=== PATIENT | female | born 1990 | race African-American/Black ===

== ENCOUNTER 2022-02-16 18:20 | Emergency (ER) | payer OTHER, SELFPAY ==
--- NOTE | ~2022-02-16 | US_ITS ---
EXAMINATION: US pelvic complete w TV DATE: 02/16/2022 21:00 INDICATION: AUB TECHNIQUE: Multiple transabdominal and endovaginal sonographic images of the pelvis were obtained. COMPARISON: None. FINDINGS: Uterus: 10.5 x 5.5 x 6.5 cm. Endometrial complex measures 5.4 mm. Right Ovary: 3.7 x 1.9 x 2.2 cm. Vascular flow is present. Left Ovary: 3.2 x 1.7 x 1.6 cm. Vascular flow is present. There is no free fluid in the pelvis. IMPRESSION: Normal pelvic sonogram findings. Reviewed, dictated and finalized at location K. [employer]
[2022-02-16 18:30] VITALS: BP 140/89; PULSE 80; RESP 16; TEMP 36.7; O2SAT 100
[2022-02-16 18:50] LABS: Basophils Percent Auto 0.3 % (0.2-1.2); Eosinophils Absolute Auto 0.1 K/mm3 (0-0.3); Hematocrit 38.2 % (37.0-47.0); Hemoglobin 12.4 g/dL (12.0-15.0); Immature Granulocyte Absolute 0.01 K/mm3 (0.00-0.031); Immature Granulocyte Percent A 0.2 % (0-0.5); Lymphocytes Absolute Auto 3.64 K/mm3 (0.9-3.2); Lymphocytes Percent Auto 59.2 % (18.3-44.2); Mean Corpuscular HGB Conc 32.5 g/dl (32-36); Mean Corpuscular Hemoglobin 29.1 pg (26-34); Mean Corpuscular Volume 89.7 fl (80-100); Mean Platelet Volume 9.3 fl (7.4-10.4); Monocytes Absolute Auto 0.3 K/mm3 (0.1-0.6); Monocytes Percent Auto 4.7 % (2.6-8.5); Neutrophils Absolute Auto 2.1 K/mm3 (1.3-6.7); Neutrophils Percent Auto 34.6 % (45.5-73.1); Platelet Count Result 361 k/mm3 (150-375); Red Blood Count 4.26 M/mm3 (4.2-5.4); Red Cell Distribution Width 12.7 % (11.5-14.5); White Blood Count 6.2 K/mm3 (4.5-10.0)
[2022-02-16 19:01] LABS: Alanine Aminotransferase 36 U/L (6-35); Albumin Level 4.5 g/dL (3.5-5.1); Alkaline Phosphatase 60 U/L (38-126); Anion Gap 6 mmol/L (8-16); Aspartate Amino Transferase 35 U/L (14-36); Bilirubin,Total 0.4 mg/dL (0.2-1.3); Blood Urea Nitrogen 10 mg/dL (7-17); Calcium 8.9 mg/dL (8.4-10.2); Carbon Dioxide 24 mmol/L (22-30); Chloride 108 mmol/L (98-107); Estimated CRCL calculation 125 ml/min; Estimated Glomerular Filt Rate > 60; Glucose 115 mg/dL (65-110); Potassium 3.6 mmol/L (3.4-5.0); Sodium 138 mmol/L (137-145)
[2022-02-16 19:17] LABS: Beta HCG Quantitative < 2.39 mIU/ML
--- NOTE | 2022-02-16 20:03 | ED.FEMALEGU ---
HPI - Female Genitourinary General Chief complaint: Vaginal Bleeding Stated complaint: passing big size blood clots Time Seen by Provider: 02/16/22 19:53 Source: patient Mode of arrival: ambulatory Limitations: no limitations History of Present Illness HPI Narrative: This is a 31-year-old female that presents to the emergency department for heavy menstrual bleeding noted since yesterday. Reports she is passing large blood clots. She is currently on control. Her women's health provider is Marlene Fagan. Reports some pelvic cramping. Denies fever, vomiting, or dysuria. Related Data Allergies Allergy/AdvReac Type Severity Reaction Status Date / Time amoxicillin Allergy Unknown Unknown Verified 02/16/22 19:56 Penicillins Allergy Unknown Unknown Verified 02/16/22 19:56 Review of Systems Review of Systems: CONSTITUTIONAL: Denies fever GASTROINTESTINAL: Denies abdominal pain, nausea, vomiting GENITOURINARY: Denies dysuria All systems reviewed & are unremarkable except as noted in HPI and below PMFSH Past Medical History Medical History (Updated 02/16/22 @ 21:59 by Rocio Arnett PA-C) No active medical problems Social History Social History (Updated 02/16/22 @ 20:05 by Rocio Arnett PA-C) Smoking status: Never smoker Exam Narrative: GENERAL: Well-appearing, well-nourished, and in no acute distress. HEAD: Normocephalic, atraumatic. EYES: EOMI. CHEST: Clear to auscultation. No respiratory distress. No wheezes rales or rhonchi HEART: Regular rate and rhythm. No murmur heard. Normal peripheral pulses. ABDOMEN: Soft, nontender, nondistended, normal active bowel sounds. EXTREMITIES: Normal range of motion. No edema. SKIN: Warm, dry, no rash. NEURO: No focal deficits. Alert and oriented x3. PSYCH: Normal mood and affect PELVIC: Normal external genitalia. Normal appearing cervix. Scant amount of bright red blood in the vaginal vault Course Vital Signs Vital signs: Vital Signs Temperature 98.1 F 02/16/22 18:30 Pulse Rate 80 02/16/22 18:30 Respiratory Rate 16 02/16/22 18:30 Blood Pressure 140/89 02/16/22 18:30 Pulse Oximetry 100 02/16/22 18:30 Oxygen Delivery Room Air 02/16/22 18:30 Temperature 98.1 F 02/16/22 18:30 Pulse Rate 80 02/16/22 18:30 Respiratory Rate 16 02/16/22 18:30 Blood Pressure 140/89 02/16/22 18:30 Pulse Oximetry 100 02/16/22 18:30 Oxygen Delivery Room Air 02/16/22 18:30 MDM - Female Genitourinary MDM Narrative Medical decision making narrative: Patient presents to the emergency department for abnormal uterine bleeding. Reports she has had heavy menstrual bleeding since yesterday. Her vitals are stable. No concerning amount of bleeding noted on exam. Her hemoglobin is normal. Bedside test is negative. Pelvic ultrasound is normal. Patient was updated on work-up. She was instructed to have continued follow-up with her women's health provider for further management. She was given warnings to return to the ER Lab Data Attestation: I reviewed the patient's lab results. 02/16/22 18:39 02/16/22 18:39 Labs: Lab Results 02/16/22 02/16/22 02/16/22 Range/Units 18:39 18:39 19:55 WBC 6.2 (4.5-10.0) K/mm3 RBC 4.26 (4.2-5.4) M/mm3 Hgb 12.4 (12.0-15.0) g/dL Hct 38.2 (37.0-47.0) % MCV 89.7 (80-100) fl MCH 29.1 (26-34) pg MCHC 32.5 (32-36) g/dl RDW 12.7 (11.5-14.5) % Plt Count 361 (150-375) k/mm3 MPV 9.3 (7.4-10.4) fl Immature Gran % (Auto) 0.2 (0-0.5) % Neut % (Auto) 34.6 L (45.5-73.1) % Lymph % (Auto) 59.2 H (18.3-44.2) % Chester % (Auto) 4.7 (2.6-8.5) % Eos % (Auto) 1.0 (0-4.4) % Baso % (Auto) 0.3 (0.2-1.2) % Lymph # (Auto) 3.64 H (0.9-3.2) K/mm3 Chester # (Auto) 0.3 (0.1-0.6) K/mm3 Eos # (Auto) 0.1 (0-0.3) K/mm3 Baso # (Auto) 0.0 (0.0-0.1) K/mm3 Abs Immat Gran (auto) 0.01 (0.00-0.031) K/mm3 Abs
[2022-02-16 20:04] LABS: Add Urine Microscopic? YES; Appearance Urine Clear (Clear); Bilirubin Urine Negative (Negative); Blood Urine 1+ (Negative); Color Urine Light Yellow (Yellow); Glucose Urine UA Negative (Negative); Ketones Urine Trace mg/dL (Negative); Leukocyte Esterase Ur Negative LEU/UL (Negative); Nitrate Urine Negative (Negative); Protein Urine Negative (Negative); Specific Grav Ur >= 1.030 (1.001-1.035); Urobilinogen Urine 0.2 mg/dL (<2.0)
[2022-02-16 20:36] LABS: Mucus Urine Few /lpf; Squamous Epithelial Cell Urine Rare /hpf (Few); WBC Urine 0-3 /hpf
[2022-02-16 22:20] VITALS: BP 142/83; PULSE 79; RESP 17; O2SAT 100
== END 2022-02-16 22:21 | disposition home or self-care (01) ==
PROVIDERS: Family Medicine; Emergency Provider Physician Assistant; PCP Physician Assistant
DX: N93.8 Other specified abnormal uterine and vaginal bleeding (principal)
CPT/HCPCS: 36415; 76830; 76856; 80053; 81001; 81025; 84702; 85025; 99284

== ENCOUNTER 2022-05-02 09:38 | Emergency (ER) | payer OTHER, SELFPAY ==
--- NOTE | ~2022-05-02 | XR_ITS ---
EXAMINATION: XR hip RT 2V w AP pelvis DATE: 05/02/2022 10:51 INDICATION: Fall from forklift onto the right side TECHNIQUE: Anteroposterior view of the pelvis and anteroposterior and frog-leg lateral views of the r ight hip were obtained. COMPARISON: None. FINDINGS: Bone alignment is normal. No fracture. Transitional lumbosacral segment. Joint spaces are normal. Pes dennis versus contraceptive ring projecting over the central pelvis. There also appear to be likely janel ateral tubal ligation rings. IMPRESSION: 1. No acute osseous abnormality. Reviewed, dictated and finalized at location A.
--- NOTE | ~2022-05-02 | XR_ITS ---
EXAMINATION: XR femur RT min 2V DATE: 05/02/2022 10:51 INDICATION: Right eye trauma with fall from forklift onto the right side TECHNIQUE: Overlapping proximal and distal, AP and lateral views of the right femur were obtained. COMPARISON: None FINDINGS: Alignment is normal. No fracture. Joint spaces are normal. No right knee joint effusion. Soft tissu es are unremarkable. IMPRESSION: Negative right femur radiographs. Reviewed, dictated and finalized at location A.
--- NOTE | ~2022-05-02 | XR_ITS ---
EXAMINATION: XR shoulder RT min 2V DATE: 05/02/2022 10:51 INDICATION: Right shoulder trauma with fall from forklift onto the right side TECHNIQUE: AP internally and externally rotated, AP oblique externally rotated and transscapular Y vi ews of the right shoulder were obtained. COMPARISON: None FINDINGS: Normal alignment. No fracture. Glenohumeral joint is normal. Acromioclavicular joint is normal. Soft tissues are unremarkable. Visualized portions of the lungs are clear. IMPRESSION: Negative right shoulder radiographs. Reviewed, dictated and finalized at location A.
[2022-05-02 09:40] VITALS: BP 131/63; PULSE 62; RESP 18; TEMP 36.7; O2SAT 98
--- NOTE | 2022-05-02 11:15 | ED.LOWEXIN ---
HPI - Extremity Injury (Lower) General Chief Complaint: Extremity Injury, Lower Stated Complaint: fall from fork lift-right hip pain Time Seen by Provider: 05/02/22 10:07 Source: patient Mode of arrival: ambulatory Limitations: no limitations History of Present Illness HPI Narrative: 31-year-old female presents today after an incident at work. 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 She states she went forward and onto her right side. Patient states she is ambulatory with assistance due to the pain to her right hip. Patient with right shoulder and right hip and right upper leg. She arrived via EMS on route 2 mg of IV Toradol. Currently rating 6 out of 10 which is tolerable for her. Related Data Allergies Allergy/AdvReac Type Severity Reaction Status Date / Time amoxicillin Allergy Unknown Unknown Verified 05/02/22 09:44 Penicillins Allergy Unknown Unknown Verified 05/02/22 09:44 Review of Systems Review of Systems: CONSTITUTIONAL: Denies fever, chills, or sweats. EYES: Denies visual changes, redness, or discharge. ENT: Denies rhinorrhea, congestion, sore throat, or otalgia. CARDIOVASCULAR: Denies chest pain, palpitations, or edema. RESPIRATORY: Denies cough or dyspnea. GASTROINTESTINAL: Denies abdominal pain, nausea, vomiting, or diarrhea. GENITOURINARY: Denies dysuria or hematuria. SKIN: Denies rash or itching. MUSCULOSKELETAL: Right shoulder pain, right hip pain, right upper leg pain. Denies back pain or myalgia. NEUROLOGIC: Denies headache, numbness, dizziness, or weakness. PSYCHIATRIC: Denies anxiety or depression. [facility] Past Medical History Medical History (Updated 05/02/22 @ 12:02 by Kendal Parry APRN) No active medical problems Social History Social History (Updated 02/16/22 @ 20:05 by Rocio Arnett PA-C) Smoking status: Never smoker Exam Narrative: GENERAL: Well-appearing, well-nourished, and in no acute distress. HEAD: Normocephalic, atraumatic. EYES: PERRLA and EOMI. ENT: Nares clear, no rhinorrhea or epistaxis. Mucous membranes moist. Oropharynx without tonsillar hypertrophy exudate or other lesions. Bilateral TMs pearly jones nonbulging NECK: Supple. No adenopathy or masses. No carotid bruits or JVD CHEST: Clear to auscultation. No respiratory distress. No wheezes rales or rhonchi HEART: Regular rate and rhythm. No murmur heard. Normal peripheral pulses. ABDOMEN: Soft, nontender, nondistended, normal active bowel sounds. EXTREMITIES: Tenderness on palpation of the right shoulder. Patient with full range of motion. Normal range of motion. No edema. No tenderness to spinal process or unremarkable. Tenderness with palpation to right hip and right femur. No obvious deformity noted. SKIN: Warm, dry, no rash. NEURO: No focal deficits. Alert and oriented x3. PSYCH: Normal mood and affect. Course Course Emergency Course: Patient pain still tolerable. Discussed x-ray findings and no acute injuries noted. Discussed management with Tylenol or ibuprofen at home. Use topicals as needed. Patient understands and in agreement with plan of care. Vital Signs Vital signs: Vital Signs Temperature 98.1 F 05/02/22 09:40 Pulse Rate 62 05/02/22 09:40 Respiratory Rate 18 05/02/22 09:40 Blood Pressure 131/63 05/02/22 09:40 Pulse Oximetry 98 05/02/22 09:40 Temperature 98.1 F 05/02/22 09:40 Pulse Rate 62 05/02/22 09:40 Respiratory Rate 18 05/02/22 09:40 Blood Pressure 131/63 05/02/22 09:40 Pulse Oximetry 98 05/02/22 09:40 MDM - Extremity Injury (Lower) MDM Narrative Medical decision making narrative: 31-year-old female HPI as noted. Work-up to include x-ray femur x-ray pelvis and right hip and x-ray right shoulder. Patients injury or pain is consistent with musculoskeletal etiology. No signs of neurological or vascular compromise on exam. Compartments and tisues are soft without signs of compartment
[2022-05-02 12:13] VITALS: BP 135/78; PULSE 81; RESP 15; TEMP 36.7; O2SAT 99
== END 2022-05-02 12:14 | disposition home or self-care (01) ==
PROVIDERS: Emergency Provider Nurse Practitioner Family; PCP Physician Assistant
DX: M25.551 Pain in right hip (principal); M25.511 Pain in right shoulder; M79.604 Pain in right leg; V83.9XXA Unspecified occupant of special industrial vehicle injured in nontraffic accident, initial encounter; Y99.0 Civilian activity done for income or pay
CPT/HCPCS: 73030; 73502; 73552; 99284